=== PATIENT | female | born 1985 | race Caucasian/White ===

== ENCOUNTER 2022-06-16 11:24 | Emergency (ER) | payer MEDICAID ==
[~2022-06-16] VITALS: Ht 162.6 cm; Wt 61.0 kg
[2022-06-16 11:35] VITALS: BP 159/101
== END 2022-06-16 15:40 | disposition left against medical advice (07) ==
LOC: ER 11:24
DX: Z53.21 Procedure and treatment not carried out due to patient leaving prior to being seen by health care provider (principal)